=== PATIENT | female | born 1980 | race Caucasian/White ===

== ENCOUNTER 2019-01-04 08:23 | Day surgery (SDC) | payer BC, SELFPAY ==
[2018-12-26 08:20] VITALS: BMI 21.9
[2019-01-04] VITALS (8 sets, daily range): BP systolic 93–132; BP diastolic 60–80; PULSE 61–91; RESP 15–16; TEMP 36.4–37; O2SAT 94–100; BMI 21.9
--- NOTE | 2019-01-04 | PATH_ITS ---
[facility] Accession Number: [id number] . 01 Material submitted: . ENDOMETRIAL CURETTINGS . 02 Diagnosis: Endometrial Curettings: Portions of disordered proliferative endometrium with patchy regions of breakdown; negative for glandular hyperplasia, cytologic atypia, and malignancy. Occasional tissue fragments demonstrate prominent vessels, suggestive of polyp, if clinical and imaging findings are concordant. MRV/01/07/2019 . 02 Electronically signed: . Mayte Solomon MD, Pathologist NPI- [id number] . 01 Gross description: . ENDOMETRIAL CURETTINGS: Received in formalin are minute fragments of mucoid and hemorrhagic material measuring 2.0 x 1.0 x 0.5 cm in aggregate. Submitted in toto in 1 cassette. /[facility] /DM . 02 Pathologist provided ICD-10: N85.00 . 02 CPT . 431509 Performed at: [address] [facility] [address], [place], [place] [id number] MD Manjeet Hong MD Phone: [phone] Performed at: [address] [facility] [address] [place], [place] [id number] MD Josephine Isbell MD Phone: [phone]
[2019-01-04] MEDS: LACTATED RINGERS 1,000 ML 42 ML IV (08:55)
[2019-01-04] MEDS: APREPITANT 40 MG CAPSULE PO (09:48)
--- NOTE | 2019-01-04 10:08 | PM.PREOP ---
Pre-operative Note Interval Note History & Physical reviewed/Exam performed by Physician: Yes Changes to H&P: No
--- NOTE | 2019-01-04 10:18 | SUR.OPER ---
Lithotomy on padded OR bed, head on pillow, arms secured on padded arm boards at <90 degrees abduction. Legs secured in padded yellow fins stirrups.
--- NOTE | 2019-01-04 10:33 | PM.HP.1 ---
History of Present Illness Date Patient Seen: 01/04/19 Time Patient Seen: 10:00 Chief complaint: [id number] Narrative: Patient is a 38-year-old who presents for a D&C hysteroscopy secondary to menorrhagia, dysmenorrhea, and thickened endometrial lining Patient History Medical History (Updated 12/26/18 @ 08:25 by Heidi Kaufman RN) Endometrial polyp (Acute) History of endometrial biopsy (Acute ~2016) Polycystic ovaries (Acute) Family History (Updated 10/21/15 @ 00:00 by Janine Hester PA-C) Father Mitral valve prolapse Mother Personal history of malignant neoplasm of breast Social History household members: spouse and children Smoking Status: Never smoker alcohol intake: never Family & Social History Family History (Updated 10/21/15 @ 00:00 by Janine Hester PA-C) Father Mitral valve prolapse Mother Personal history of malignant neoplasm of breast Social History: household members spouse,children Tobacco & Substance use: Smoking Status Never smoker alcohol intake never Substance Use Type does not use Meds Home Medications Medication Instructions Recorded Confirmed Type ferrous sulfate [Feosol] 325 mg PO #0 tab 06/29/16 10/24/18 History Allergies Allergy/AdvReac Type Severity Reaction Status Date / Time iodine [IODINE] Allergy Severe VIOLENT Unverified 10/24/18 08:09 VOMITING AND ABDOMINAL CRAMPING shellfish derived Allergy Severe VIOLENT Unverified 10/24/18 08:09 [SHELLFISH DERIVED] VOMITING AND ABDOMINAL CRAMPING cephalexin [CEPHALEXIN] Allergy Intermediate CRAMPING Unverified 10/24/18 08:09 latex [LATEX] Allergy Intermediate ITCHING Unverified 10/24/18 08:09 AND SOMETIMES RASH metronidazole [From METROGEL] Allergy Intermediate VAGINAL Unverified 10/24/18 08:09 PAIN Penicillins [PENICILLINS] Allergy Intermediate CRAMPING Unverified 10/24/18 08:09 AND DIARRHEA prednisone [PREDNISONE] AdvReac Severe ANXIETY Unverified 10/24/18 08:09 spironolactone AdvReac Severe TACHYCARDIA Unverified 10/24/18 08:09 [SPIRONOLACTONE] Exam Vital Signs (past 8 hours): - 01/04/19 08:47 Temperature 98.6 F Pulse Rate 91 H Respiratory Rate 16 Blood Pressure 118/80 Pulse Oximetry 100 Oxygen Delivery Method Room Air Narrative Exam Narrative: HEENT: No thyromegaly, no anterior cervical or supraclavicular lymphadenopathy. Lungs:Clear to auscultation bilaterally, no wheezes. Cardiovascular: Regular rate and rhythm, no murmurs, rubs, or gallops. Abdomen: No scars. No hepatosplenomegaly. No masses palpable. External genitalia: Normal Vagina: Normal Cervix: Normal Bimanual exam: 8 Week size uterus. Mobile. Rectal: No masses. Assessment & Plan Assessment & Plan narrative: Assessment: 38-year-old with dysmenorrhea, menorrhagia, and thickened endometrial lining consistent with a polyp Plan: D&C hysteroscopy with possible polypectomy The risks, benefits, and alternatives to the procedure were explained to the patient. The risks including bleeding, infection, and uterine perforation. She understands these risks and agrees to proceed. A full PAR-Q was held and consent form was signed
--- NOTE | 2019-01-04 10:36 | PM.GYNOP.1 ---
Operative Date/Time/Diagnoses Date of procedure: 01/04/19 Time of procedure: 10:36 Pre-op diagnosis: Menorrhagia Dysmenorrhea Thickened endometrial lining consistent with a polyp Post-op diagnosis: same Procedure: Procedures Operation Date: 01/04/19 09:45 Actual Procedures Side Surgeon p HYSTEROSCOPY , D& C Not Applicable Elissa Turk MD Indications: Menorrhagia Dysmenorrhea Thickened endometrial lining consistent with a polyp Surgeon: Elissa Turk Anesthesia Type: General (LMA) Operative Notes Findings: 8 week size anteverted uterus Both fallopian tube ostia observed No polyp, but very thickened endometrial lining especially in the lower uterine segment Closure Type: not applicable Specimen(s): endometrial curettings Estimated blood loss (mL): 15 Blood products transfused: none Procedure in detail: After informed consent was obtained, the patient was taken to the operating room where she was placed in the dorsal supine position. After adequate LMA general anesthesia was achieved, she was placed in the dorsal lithotomy position, and prepped and draped in the usual sterile fashion. A time-out was performed. A bivalve speculum was placed into the vagina and the anterior lip of the cervix grasped with a single-tooth tenaculum. Cervical os was sequentially dilated to the # 9 Hegar dilator. The hysteroscope passed easily into the endometrial cavity. Both fallopian tube ostia were observed. There was no polyp but thickened endometrial lining especially in the lower uterine segment. The hysteroscope was removed from the uterus. Sharp curettage was performed yielding a large amount of endometrial curettings. The instruments were removed from the uterus. The single-tooth tenaculum was removed from the anterior lip of the cervix. The bivalve speculum was removed from the vagina. Sponge, lap, and instrument counts were correct x2. The patient tolerated the procedure well, and was taken to PACU in stable condition. Complications: none Post-operative Condition: stable Disposition: PACU Plan for aftercare: Home after recovery
[2019-01-04] MEDS: KETOROLAC 30 MG/ML VIAL IV (10:40)
[2019-01-04] MEDS: ONDANSETRON 4 MG/2 ML INJ IV (10:41)
[2019-01-04] MEDS: fentaNYL 100 MCG/2 ML INJ 50 MCG IV ×4 (10:48→11:05)
[2019-01-04] MEDS: OXYCODONE/ACETAMINOPHEN 5/325 TABLET 1 TAB PO (12:20)
== END 2019-01-04 12:26 | disposition home or self-care (01) ==
PROVIDERS: PCP Physician Assistant; Visit Provider Obstetrics & Gynecology
PROC: 0UDB8ZZ Extraction of Endometrium, Via Natural or Artificial Opening Endoscopic (ICD-10-PCS; CPT 58558; principal; 2019-01-04 09:45)
DX: N85.00 Endometrial hyperplasia, unspecified (principal); E28.2 Polycystic ovarian syndrome
CPT/HCPCS: 58558; J1885; J2250; J2405; J2704; J2765; J3010; J8501

== ENCOUNTER → 2019-06-11 09:35 | Outpatient (CLI) | payer BC, SELFPAY ==
[2019-06-11 10:35] LABS: Add Manual Diff / Slide Review NO; Basophils Absolute Auto 0 /uL (0-100); Basophils Percent Auto 0.3 % (0-2); Eosinophils Absolute Auto 0 /uL (0-450); Eosinophils Percent Auto 0.8 % (2-4); Hematocrit 39.7 % (36-46); Hemoglobin 13.5 g/dL (12.0-16.0); Lymphocytes Absolute Auto 1700 /uL (1100-4500); Lymphocytes Percent Auto 28.9 % (25-40); Mean Corpuscular HGB Conc 33.9 % (30-36); Mean Corpuscular Hemoglobin 31.2 PG (26-34); Mean Corpuscular Volume 91.9 fL (80-100); Monocytes Absolute Auto 400 /uL (0-900); Monocytes Percent Auto 6.7 % (3-14); Neutrophils Absolute Auto 3700 /uL (1500-7000); Neutrophils Percent Auto 63.3 % (50-75); Platelet Count 302 X10^3/uL (150-400); Red Blood Cell Count 4.32 X10^6/uL (4.0-5.2); Red Cell Distribution Width 12.6 % (11.6-14.8); White Blood Cell Count 5.8 X10^3/uL (4.5-11.0)
[2019-06-11 10:45] LABS: Alanine Aminotransferase 19 IU/L (9-52); Albumin 4.7 g/dL (3.5-5.0); Albumin Globulin Ratio 1.5 (1.0-2.8); Alkaline Phosphatase 56 U/L (38-126); Aspartate Aminotransferase 24 IU/L (14-36); BUN Creatinine Ratio 16.7 (6-22); Bilirubin Total 0.3 mg/dL (0.2-1.3); Blood Urea Nitrogen 15 mg/dL (7-17); Calcium 9.6 mg/dL (8.4-10.2); Carbon Dioxide 24 mmol/L (22-32); Chloride 106 mmol/L (98-107); Cholesterol 156 mg/dL (140-199); Estimated Glomerular Filt Rate > 60.0 mL/min (>60); Globulin 3.1 g/dL (1.7-4.1); Glucose 102 mg/dL (70-100); HDL Cholesterol 63 mg/dL (40-60); HEMOLYSIS < 15 (0-50); LDL Cholesterol Calculated 86 mg/dL (<100); Potassium 3.9 mmol/L (3.4-5.1); Sodium 139 mmol/L (137-145); Total Protein 7.8 g/dL (6.3-8.2); Triglycerides 36 mg/dL (35-150)
[2019-06-11 11:00] LABS: Free T3, Triiodothyronine Free 3.98 pg/mL (2.77-5.27); Free T4, Direct Thyroxine 0.82 ng/dL (0.78-2.19)
[2019-06-11 11:14] LABS: Thyroid Stimulating Hormone 1.86 uIU/mL (0.47-4.68)
[2019-06-11 11:18] LABS: Ferritin 16.9 ng/mL (6.27-137)
[2019-06-13 15:49] LABS: Thyroid Peroxidase Antibodies 2 IU/mL (< 9)
== END ==
PROVIDERS: PCP Physician Assistant; Visit Provider Naturopath
DX: Z00.00 Encounter for general adult medical examination without abnormal findings (principal)
CPT/HCPCS: 36415; 80053; 80061; 82728; 84439; 84443; 84481; 85025; 86376

== ENCOUNTER 2020-01-13 12:08 | Emergency (ER) | payer BC, SELFPAY ==
[2020-01-13 12:17] VITALS: BP 131/80; PULSE 98; RESP 12; TEMP 37; O2SAT 100
--- NOTE | 2020-01-13 12:20 | DI.RAD.S_ITS ---
PROCEDURE: XR CHEST 1V INDICATIONS: palpitations TECHNIQUE: One view of the chest was acquired. COMPARISON: [facility], , CHEST 2 VIEW, 10/04/2011, 10:12. FINDINGS: Surgical changes and devices: None. Lungs and pleura: Lungs are clear. No pleural effusions or pneumothorax. Mediastinum: Mediastinal contours appear normal. Heart size is normal. Bones and chest wall: No suspicious bony lesions. Overlying soft tissues appear unremarkable. IMPRESSION: Normal for age, source of current palpitation symptoms is not seen. Dictated by: Corey Ramon M.D. on 01/13/2020 at 12:40 Approved by: Corey Ramon M.D. on 01/13/2020 at 12:41
--- NOTE | 2020-01-13 12:32 | ED.ARRPALP ---
HPI - Arrhythmia/Palpitations General Chief Complaint: Arrhythmia/Palpitations Stated Complaint: heart palp Time Seen by Provider: 01/13/20 12:20 Source: patient and old records reviewed Mode of arrival: Ambulatory Limitations: no limitations History of Present Illness HPI narrative: This is a 39-year-old female comes to the emergency department with complaint of heart palpitations. Patient states she was at home lying in bed when she felt like her heart was racing from 64 up to the 150 range. She states she felt sort of sweaty and chilled when this happened. She states it happened multiple times. She states she has felt mildly lightheaded. She felt some tightness in her left chest with these episodes. They last for very short period of time. She does not feel short of breath or have any chest tightness at this time. She denies any nausea or vomiting. She denies any diarrhea, constipation or black or bloody stools. No urinary symptoms. No swelling in her extremities. She did recently stop the supplement that had form of stimulant and several other components about 3 days ago. She was taking this for 3 weeks. She denies any other medications. She has had a hysteroscopy and umbilical hernia repair. She denies tobacco, alcohol or illicit. She states her father has a history of mitral valve prolapse, mother has history of hypertension and cancer. She denies any embolic history. Related Data Home Medications Medication Instructions Recorded Confirmed ferrous sulfate [Feosol] 325 mg PO #0 tab 06/29/16 10/24/18 Allergies Allergy/AdvReac Type Severity Reaction Status Date / Time iodine [IODINE] Allergy Severe VIOLENT Unverified 10/24/18 08:09 VOMITING AND ABDOMINAL CRAMPING shellfish derived Allergy Severe VIOLENT Unverified 10/24/18 08:09 [SHELLFISH DERIVED] VOMITING AND ABDOMINAL CRAMPING cephalexin [CEPHALEXIN] Allergy Intermediate CRAMPING Unverified 10/24/18 08:09 latex [LATEX] Allergy Intermediate ITCHING Unverified 10/24/18 08:09 AND SOMETIMES RASH metronidazole [From METROGEL] Allergy Intermediate VAGINAL Unverified 10/24/18 08:09 PAIN Penicillins [PENICILLINS] Allergy Intermediate CRAMPING Unverified 10/24/18 08:09 AND DIARRHEA prednisone [PREDNISONE] AdvReac Severe ANXIETY Unverified 10/24/18 08:09 spironolactone AdvReac Severe TACHYCARDIA Unverified 10/24/18 08:09 [SPIRONOLACTONE] acetaminophen [From Percocet] AdvReac N/V, Verified 02/06/19 08:40 dizziness, and almost passing out oxycodone [From Percocet] AdvReac N/V, Verified 02/06/19 08:40 dizziness, and almost passing out Review of Systems Review of Systems ROS Unobtainable: All systems reviewed & are unremarkable except as noted in HPI and below Patient History Medical History Endometrial polyp (Acute) History of endometrial biopsy (Acute ~2016) Polycystic ovaries (Acute) Surgical History Status post D&C (Resolved 01/04/19) Family History Father Mitral valve prolapse Mother Personal history of malignant neoplasm of breast Social History household members: spouse and children Smoking Status: Never smoker alcohol intake: never Smoking Status: Never smoker alcohol intake frequency: holidays/special occasions only Substance Use Type: does not use Exam Narrative Exam Narrative: GENERAL: Alert and oriented x three,, well-appearing female in mild distress. HEENT: Head normocephalic, atraumatic, EOMI, pupils reactive, face symmetric, moist mucous membranes NECK: Supple, full range of motion CARDIOVASCULAR: Regular rate and rhythm without murmurs, rubs or gallops. No JVD. No swelling of bilateral lower extremities. RESPIRATORY: Breath sounds equal bilaterally, no wheezes rales or rhonchi. No tachypnea or accessory muscle use. ABDOMEN: Soft, nontender. Normoactive bowel sounds all 4 quadrants. No guarding or rebound, rigidity, no mass : No CVA tenderness EXTREMITIES: Normal range of motion, 2+ pulses bilateral lower extremities. Neurovascularly intact NEUROLOGICAL: Cranial nerves II through XII grossly intact. Moving all extremities SKIN: Warm, dry, no petechiae, no rashes or lesions. Initial Vital Signs Initial Vital Signs: Vital Signs Temperature 98.6 F 01/13/20 12:17 Pulse Rate 98 H 04/06/20 12:17 Respiratory Rate 12 01/13/20 12:17 Blood Pressure 131/80 01/13/20 12:17 Pulse Oximetry 100 01/13/20 12:17 Scores PERC Score Age greater than or equal to 50 years: No Heart rate greater than or equal to 100 bpm: No Room Air O2 Sat less than 95%: No Unilateral leg swelling: No Recent trauma or surgery: No Hemoptysis: No Prior PE or DVT: No Hormone Use: No Total PERC Score: 0 Course Orders Ordered: ED Orders 01/13/20 12:20 XR chest 1V Stat 01/13/20 12:40 Basic Metabolic Panel Stat Complete Blood Count AUTO DIFF Stat Magnesium Stat Partial Thromboplastin Time Stat Prothrombin Time INR Stat Thyroid Stimulating Hormone Stat Troponin & CK Cardiac Panel Stat 01/13/20 14:10 Urine Drug Screen, Rapid Stat Discontinued Medications Sodium Chloride (Normal Saline 0.9%) 1,000 mls @ 1,000 mls/hr IV BOLUS ONE Stop: 01/13/20 13:45 Last Infusion: 01/13/20 15:41 Dose: 0 mls/hr Documented by: Admin: 01/13/20 14:58 Dose: 1,000 mls/hr Documented by: BTONER Vital Signs Vital signs: Vital Signs - 8 hr 01/13/20 12:17 01/13/20 13:33 01/13/20 14:20 Temperature 98.6 F Pulse Rate 98 H 68 70 Respiratory Rate 12 17 14 Blood Pressure 131/80 Blood Pressure [Right Arm] 103/58 L 120/66 Pulse Oximetry 100 100 100 01/13/20 15:42 Temperature Pulse Rate 78 Respiratory Rate 17 Blood Pressure 106/65 Blood Pressure [Right Arm] Pulse Oximetry 100 MDM - Arrhythmia/Palpitations Lab Data Attestation: I reviewed the patient's lab results. Result diagrams: 01/13/20 12:40 01/13/20 12:40 Labs: Lab Results 01/13/20 01/13/20 01/13/20 Range/Units 12:40 12:40 12:40 WBC 7.2 (4.5-11.0) X10^3/uL RBC 4.27 (4.0-5.2) X10^6/uL Hgb 13.6 (12.0-16.0) g/dL Hct 40.3 (36-46) % MCV 94.4 (80-100) fL MCH 32.0 (26-34) PG MCHC 33.9 (30-36) % RDW 13.5 (11.6-14.8) % Plt Count 296 (150-400) X10^3/uL Neut % (Auto) 81.7 H (50-75) % Lymph % (Auto) 13.3 L (25-40) % [place] % (Auto) 4.6 (3-14) % Eos % (Auto) 0.2 L (2-4) % Baso % (Auto) 0.2 (0-2) % Neut # (Auto) 5900 (2633-7678) /uL Lymph # (Auto) 1000 L (8639-6637) /uL [place] # (Auto) 300 (0-900) /uL Eos # (Auto) 0 (0-450) /uL Baso # (Auto) 0 (0-100) /uL PT 12.5 (10.1-12.7) SECONDS INR 1.1 (0.9-1.3) APTT 31 (26.4-36.2) SECONDS Sodium 142 (137-145) mmol/L Potassium 4.0 (3.4-5.1) mmol/L Chloride 110 H (98-107) mmol/L Carbon Dioxide 22 (22-32) mmol/L BUN 11 (7-17) mg/dL Creatinine 0.87 (0.52-1.04) mg/dL Estimated GFR > 60.0 (>60) mL/min BUN/Creatinine Ratio 12.6 (6-22) Glucose 103 H (70-100) mg/dL Calcium 9.7 (8.4-10.2) mg/dL Magnesium 2.0 (1.6-2.3) mg/dL Total Creatine Kinase 66 (30-135) U/L CK-MB (CK-2) TNP CK-MB (CK-2) Rel Index TNP Troponin I < 0.012 (0.01-0.034) ng/mL TSH (0.47-4.68) uIU/mL U Opiates 300ng/mL cut (Negative) Ur Oxycodone Screen (Negative) Urine Methadone Screen (Negative) Ur Barbiturates Screen (Negative) U Tricyclic Antidepress (Negative) Ur Phencyclidine Scrn (Negative) Ur Amphetamines Screen (Negative) U Methamphetamines Scrn (Negative) Ur MDMA Scrn (Ecstasy) (Negative) U Benzodiazepines Scrn (Negative) Urine Cocaine Screen (Negative) U Marijuana (THC) Screen (Negative) 01/13/20 01/13/20 Range/Units 12:40 14:10 WBC (4.5-11.0) X10^3/uL RBC (4.0-5.2) X10^6/uL Hgb (12.0-16.0) g/dL Hct (36-46) % MCV (80-100) fL MCH (26-34) PG MCHC (30-36) % RDW (11.6-14.8) % Plt Count (150-400) X10^3/uL Neut % (Auto) (50-75) % Lymph % (Auto) (25-40) % [place] % (Auto) (3-14) % Eos % (Auto) (2-4) % Baso % (Auto) (0-2) % Neut # (Auto) (1073-8122) /uL Lymph # (Auto) (3590-6557) /uL [place] # (Auto) (0-900) /uL Eos # (Auto) (0-450) /uL Baso # (Auto) (0-100) /uL PT (10.1-12.7) SECONDS INR (0.9-1.3) APTT (26.4-36.2) SECONDS Sodium (137-145) mmol/L Potassium (3.4-5.1) mmol/L Chloride (98-107) mmol/L Carbon Dioxide (22-32) mmol/L BUN (7-17) mg/dL Creatinine (0.52-1.04) mg/dL Estimated GFR (>60) mL/min BUN/Creatinine Ratio (6-22) Glucose (70-100) mg/dL Calcium (8.4-10.2) mg/dL Magnesium (1.6-2.3) mg/dL Total Creatine Kinase (30-135) U/L CK-MB (CK-2) CK-MB (CK-2) Rel Index Troponin I (0.01-0.034) ng/mL TSH 1.19 (0.47-4.68) uIU/mL U Opiates 300ng/mL cut Negative (Negative) Ur Oxycodone Screen Negative (Negative) Urine Methadone Screen Negative (Negative) Ur Barbiturates Screen Negative (Negative) U Tricyclic Antidepress Negative (Negative) Ur Phencyclidine Scrn Negative (Negative) Ur Amphetamines Screen Negative (Negative) U Methamphetamines Scrn Negative (Negative) Ur MDMA Scrn (Ecstasy) Negative (Negative) U Benzodiazepines Scrn Negative (Negative) Urine Cocaine Screen Negative (Negative) U Marijuana (THC) Screen Negative (Negative) Point of Care Testing Test Results Negative Urine Dip Bedside Urine Glucose Negative Bedside Urine Bilirubin - Negative Bedside Urine Ketone - Negative Urine Specific [place] 1.015 Bedside Urine Occult Blood - Negative Bedside Urine pH 7.0 Bedside Urine Urobilinogen - Negative Bedside Urine Nitrite - Negative Bedside Urine Leukocytes - Negative Esterase Imaging Data Chest x-ray: Radiologist's Impresson: 6 Helene Dennison DO Find Patient Imaging - Debbie Noriega 39 F 1980 ACTIVITY DATE EXAM STATUS AUTHOR 01/13/20 12:20 Signed [place],[address] [address] XRay Report Signed Patient: Debbie Noriega MMR#: [id number] : 1980Acct:[id number] Age/Sex: 39 / FDate of Service: 01/13/20 Loc: ED Accession Number: [id number] Procedure: XR chest 1V Ordering Provider: Helene Dennison D.O. PROCEDURE: XR CHEST 1V INDICATIONS: palpitations TECHNIQUE: One view of the chest was acquired. COMPARISON: [facility], CHEST 2 VIEW, 10/04/2011, 10:12. FINDINGS: Surgical changes and devices: None. Lungs and pleura: Lungs are clear. No pleural effusions or pneumothorax. Mediastinum: Mediastinal contours appear normal. Heart size is normal. Bones and chest wall: No suspicious bony lesions. Overlying soft tissues appear unremarkable. IMPRESSION: Normal for age, source of current palpitation symptoms is not seen. Dictated by: Corey Ramon M.D. on 01/13/2020 at 12:40 Approved by: Corey Ramon M.D. on 01/13/2020 at 12:41 ECG Data Attestation: I personally reviewed and interpreted this ECG as follows: Prior ECG tracings: not available for review Interpretation: Sinus rhythm rate 86 DE 128 QRS 82 and QTC of 433. Patient has depression in V4 5 and 6. No elevation noted. Patient does not have any priors for comparison. [facility] Narrative Medical decision making narrative: Patient labs do not show major abnormalities, chest x-ray is negative, EKG shows some ST depression V4, 5 and 6 but no other acute changes with do priors for comparison. Patient has not had any additional episodes in the department that are captured on telemetry. Patient states that her heart rate changes were noted on her Fitbit. She did not check her pulse when this was happening. Return precautions were given. She states that she felt she had an episode while she was here her heart rate changed by 20 points but was still within normal range from 70-90 range. Discharge Plan Departure Patient Disposition: Home Clinical Impression: Palpitations Discharge Date/Time: 01/13/20 15:44 Instructions: DI for Palpitations Activity Restrictions/Additional Instructions: Follow up with your physician, call to discuss your symptoms. If you continue to have them they may try to set up a holter monitor or ziopatch. Your labs and imaging did not show any acute changes today. I would not continue your recent supplement, this may have contributed to your symptoms. Return for passing out, recurrent prolonged symptoms, new chest pain or shortness of breath, persistent vomiting, swelling of your extremities or other new or concerning symptoms. Prescriptions: No Action ferrous sulfate [Feosol] 325 MG tablet 325 mg PO Qty: 0 RF: 0 Referrals: Janine Hester PA-C [Primary Care Provider] -
--- NOTE | 2020-01-13 12:57 | PC.NURSE ---
pt states she has been taking a multi supplement including advantra z for 3 weeks, pt stopped it 3 days ago when her heart felt fast.
[2020-01-13 13:05] LABS: Add Manual Diff / Slide Review NO; Basophils Absolute Auto 0 /uL (0-100); Basophils Percent Auto 0.2 % (0-2); Eosinophils Absolute Auto 0 /uL (0-450); Eosinophils Percent Auto 0.2 % (2-4); Hematocrit 40.3 % (36-46); Hemoglobin 13.6 g/dL (12.0-16.0); INR 1.1 (0.9-1.3); Lymphocytes Absolute Auto 1000 /uL (1100-4500); Lymphocytes Percent Auto 13.3 % (25-40); Mean Corpuscular HGB Conc 33.9 % (30-36); Mean Corpuscular Volume 94.4 fL (80-100); Monocytes Absolute Auto 300 /uL (0-900); Monocytes Percent Auto 4.6 % (3-14); Neutrophils Absolute Auto 5900 /uL (1500-7000); Neutrophils Percent Auto 81.7 % (50-75); Platelet Count 296 X10^3/uL (150-400); Prothrombin Time 12.5 SECONDS (10.1-12.7); Red Blood Cell Count 4.27 X10^6/uL (4.0-5.2); Red Cell Distribution Width 13.5 % (11.6-14.8); White Blood Cell Count 7.2 X10^3/uL (4.5-11.0)
[2020-01-13 13:07] LABS: PTT Partial Thromboplastin Tim 31 SECONDS (26.4-36.2)
[2020-01-13 13:10] LABS: BUN Creatinine Ratio 12.6 (6-22); Blood Urea Nitrogen 11 mg/dL (7-17); Calcium 9.7 mg/dL (8.4-10.2); Carbon Dioxide 22 mmol/L (22-32); Chloride 110 mmol/L (98-107); Creatine Kinase 66 U/L (30-135); Estimated Glomerular Filt Rate > 60.0 mL/min (>60); Glucose 103 mg/dL (70-100); HEMOLYSIS < 15 (0-50); Sodium 142 mmol/L (137-145)
[2020-01-13 13:23] LABS: Troponin I < 0.012 ng/mL (0.01-0.034)
[2020-01-13 13:33] VITALS: BP 103/58; PULSE 68; RESP 17; O2SAT 100
[2020-01-13 13:41] LABS: Thyroid Stimulating Hormone 1.19 uIU/mL (0.47-4.68)
[2020-01-13 14:20] VITALS: BP 120/66; PULSE 70; RESP 14; O2SAT 100
[2020-01-13 14:41] LABS: UR Morphine/Opiate cutoff 300 Negative (Negative); Ur Creatinine Normal (Normal); Ur Specific Gravity Normal (Normal); Urine Amphetamines Negative (Negative); Urine Barbiturates Negative (Negative); Urine Benzodiazepines Negative (Negative); Urine Cocaine Negative (Negative); Urine MDMA Negative (Negative); Urine Methadone Negative (Negative); Urine Methamphetamines Negative (Negative); Urine Oxycodone Negative (Negative); Urine Phencyclidine Negative (Negative); Urine Tetrahydrocannabinol Negative (Negative); Urine Tricyclic Antidepressant Negative (Negative); Urine pH Normal (Normal)
[2020-01-13] MEDS: SODIUM CHLORIDE 0.9% 1,000 ML 1000 ML IV (14:58)
[2020-01-13 15:42] VITALS: BP 106/65; PULSE 78; RESP 17; O2SAT 100
== END 2020-01-13 15:44 | disposition home or self-care (01) ==
PROVIDERS: Emergency Provider Emergency Medicine; PCP Physician Assistant
DX: R00.2 Palpitations (principal)
CPT/HCPCS: 36415; 71045; 80048; 80305; 81003; 81025; 82550; 83735; 84443; 84484; 85025; 85610; 85730; 93005; 96360; 99284

== ENCOUNTER → 2020-06-03 12:45 | Outpatient (ROUT) | payer BC, SELFPAY ==
[2020-06-03 12:49] LABS: Bacteria Urine None Seen; WBC Urine None Seen (0-5/HPF)
[2020-06-03 12:53] LABS: Appearance Urine UA CLEAR; Bilirubin Urine UA NEGATIVE (NEGATIVE); Color Urine UA YELLOW; Glucose Urine UA NEGATIVE (Negative); Ketones Urine UA NEGATIVE (NEGATIVE); Leukocyte Esterase Urine UA NEGATIVE (NEGATIVE); Nitrite Urine UA NEGATIVE (Negative); Occult Blood Urine UA TRACE-INTACT (Negative); Protein Urine UA NEGATIVE (Negative); Urobilinogen Urine UA 0.2 E.U./dL (0.2)
[2020-06-03 13:02] LABS: Culture Indicated Urine Cult Not Indicated; RBC Urine 1-5/HPF (0-5/HPF)
== END ==
PROVIDERS: PCP Physician Assistant; Visit Provider Naturopath
DX: N39.0 Urinary tract infection, site not specified (principal)
CPT/HCPCS: 81001

== ENCOUNTER 2020-06-04 06:16 | Emergency (ER) | payer BC, SELFPAY ==
[2020-06-04 06:28] VITALS: BP 118/67; PULSE 90; RESP 15; TEMP 36.8; O2SAT 100; BMI 21.6
[2020-06-04 06:53] VITALS: PULSE 80; O2SAT 98
[2020-06-04 07:00] VITALS: BP 119/69; PULSE 86; O2SAT 100
--- NOTE | 2020-06-04 07:03 | ED_ITS ---
HPI - Female Genitourinary General Chief complaint: Urogenital-Female Stated complaint: feels awful thinks poss uti Time Seen by Provider: 06/04/20 06:42 Source: patient Mode of arrival: Ambulatory Limitations: no limitations History of Present Illness HPI Narrative: Patient is a 39-year-old female who presents with pelvic pain ongoing for the last 3 weeks. She thought she had a UTI painful frequent urination she took cranberry juice and has had abdominal cramping. She says it has not helped. She is had a foul smelling odor. She has a monogamous relationship with her . She denies any pruritus. Shes Had nightly urinary urgency and frequency. She has had ongoing vaginal discomfort for the past few weeks. She denies any fever chills nausea or vomiting Related Data Home Medications Medication Instructions Recorded Confirmed ferrous sulfate [Feosol] 325 mg PO #0 tab 06/29/16 04/18/20 Previous Rx's Medication Instructions Recorded metronidazole [Flagyl] 500 mg PO BID #14 tab 06/04/20 ondansetron 4 mg PO Q8H PRN #10 tab 06/04/20 Allergies Allergy/AdvReac Type Severity Reaction Status Date / Time iodine [IODINE] Allergy Severe VIOLENT Verified 04/18/20 09:20 VOMITING AND ABDOMINAL CRAMPING shellfish derived Allergy Severe VIOLENT Verified 04/18/20 09:20 [SHELLFISH DERIVED] VOMITING AND ABDOMINAL CRAMPING cephalexin [CEPHALEXIN] Allergy Intermediate CRAMPING Verified 04/18/20 09:20 latex [LATEX] Allergy Intermediate ITCHING Verified 04/18/20 09:20 AND SOMETIMES RASH metronidazole [From METROGEL] Allergy Intermediate VAGINAL Verified 04/18/20 09:20 PAIN Penicillins [PENICILLINS] Allergy Intermediate CRAMPING Verified 04/18/20 09:20 AND DIARRHEA prednisone [PREDNISONE] AdvReac Severe ANXIETY Verified 04/18/20 09:20 spironolactone AdvReac Severe TACHYCARDIA Verified 04/18/20 09:20 [SPIRONOLACTONE] acetaminophen [From Percocet] AdvReac N/V, Verified 04/18/20 09:20 dizziness, and almost passing out oxycodone [From Percocet] AdvReac N/V, Verified 04/18/20 09:20 dizziness, and almost passing out Review of Systems Review of Systems ROS Unobtainable: All systems reviewed & are unremarkable except as noted in HPI and below Constitutional Constitutional: Denies chills, Denies fever(s), Denies lethargy and Denies weakness Cardiovascular Cardiovascular: Denies chest pain, Denies irregular heart rhythm, Denies lightheadedness, Denies palpitations, Denies dyspnea, Denies dyspnea on exertion and Denies orthopnea Respiratory Respiratory: Denies cough, Denies dyspnea, Denies dyspnea on exertion and Denies wheezing Gastrointestinal Gastrointestinal: Reports abdominal pain (Lower abdominal cramping), Reports cramping and Denies nausea Genitourinary Genitourinary: Reports as per HPI, Reports urinary hesitancy and Reports urinary urgency Genitourinary: Reports as per HPI, Reports urinary hesitancy, Reports urinary urgency, Reports vaginal discharge and Reports vaginal odor Musculoskeletal Musculoskeletal: Denies back pain and Denies myalgias Integumentary/Breasts Skin/Breast: Denies pruritus, Denies erythema, Denies rash and Denies wounds Neurologic Neurologic: Denies weakness Endocrine Endocrine: Denies palpitations Allergic/Immunologic Allergic/Immunologic: Denies wheezing Patient History Medical History Endometrial polyp (Acute) History of endometrial biopsy (Acute ~2016) Polycystic ovaries (Acute) Surgical History Status post D&C (Resolved 01/04/19) Family History Father Mitral valve prolapse Mother Personal history of malignant neoplasm of breast alcohol intake frequency: holidays/special occasions only Substance Use Type: does not use Exam Initial Vital Signs Initial Vital Signs: Vital Signs Temperature 98.3 F 06/04/20 06:28 Pulse Rate 90 06/04/20 06:28 Respiratory Rate 15 06/04/20 06:28 Blood Pressure 118/67 06/04/20 06:28 Pulse Oximetry 100 06/04/20 06:28 GENERAL: Well-appearing, well-nourished and in no acute distress. HEENT: Head atraumatic,EOMI, pupils reactive, face symmetric, moist mucous membranes CARDIOVASCULAR: Regular rate and rhythm without murmurs, rubs or gallops. RESPIRATORY: Breath sounds equal bilaterally, no wheezes rales or rhonchi. ABDOMEN: Soft, nontender. Normoactive bowel sounds all 4 quadrants. No guarding or rebound. PELVIC: External genitalia is normal, no vaginal bleeding, yellowish white vaginal discharge, foul odor, cervical os is closed, no adnexal tenderness : No CVA tenderness EXTREMITIES: Normal range of motion, no clubbing or edema. Neurovascularly intact NEUROLOGICAL: Alert and oriented x4 SKIN: Warm, dry, no laceration, no petechiae, no rashes or lesions. Course Orders Ordered: ED Orders 06/04/20 07:03 Chlamydia/Gonoc/Myco Genital Stat Genital Culture Stat Wet Prep Tric BV Ngoc Stat 06/04/20 07:08 US pelvic complete Stat Discontinued Medications Ibuprofen (Advil) 800 mg PO NOW ONE Stop: 06/04/20 07:09 Last Admin: 06/04/20 07:13 Dose: 800 mg Documented by: SCANHALIE Ondansetron HCl (Zofran Odt) 4 mg SL NOW ONE Stop: 06/04/20 07:09 Last Admin: 06/04/20 07:13 Dose: 4 mg Documented by: SCANHALIE Vital Signs Vital signs: Vital Signs - 8 hr 06/04/20 06:28 06/04/20 06:53 06/04/20 07:00 Temperature 98.3 F Pulse Rate 90 80 86 Respiratory Rate 15 Blood Pressure 118/67 119/69 Pulse Oximetry 100 98 100 06/04/20 07:30 Temperature Pulse Rate 80 Respiratory Rate Blood Pressure 115/73 Pulse Oximetry 100 MDM - Female Genitourinary Lab Data Attestation: I reviewed the patient's lab results. 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 Additional endovaginal scanning was necessary due to incomplete visualization of the adnexal and endometrial structures by transabdominal scanning. [facility], , [facility] PELVIC COMPLETE, 10/24/2018, 8:30. [facility], , PELVIC COMPLETE, 06/29/2016, 8:29. FINDINGS: Transabdominal scanning: Limited scanning through the kidneys shows no hydronephrosis. No pathologic free abdominal or pelvic fluid. Endovaginal scanning: Uterus: Uterus is normal in size at 5.3 x 6.2 x 9.1 cm. The endometrium measures 16.1 mm in combined thickness. Ovaries: 3.1 x 2.4 x 1.7 cm on the right, 2.5 x 2.2 x 2.3 cm on the left. IMPRESSION: Source of pain is not identified. Normal appearing uterus and endometrial lining. Dictated by: Corey Ramon M.D. on 06/04/2020 at 8:35 Approved by: Corey Ramon M.D. on 06/04/2020 at 8:37 MDM Narrative Medical decision making narrative: Wet mount is negative for clue cells but has white cells. However odor does smell fishy and bacteria vaginosis like, this does not appear to be yeast infection. Discussed with her will treat her with Flagyl in see if her symptoms improve. She has no sign of UTI either. She does not appear to be septic. Her pain and nausea have improved with ibuprofen and Zofran. At this time no need for any further blood work or imaging. Recommend outpatient follow-up and return if symptoms are getting worse. Discharge Plan Departure Patient Disposition: Home Clinical Impression: Bacterial vaginosis Discharge Date/Time: 06/04/20 08:49 Instructions: DI for Bacterial Vaginosis Activity Restrictions/Additional Instructions: *You have been diagnosed with bacteria vaginosis *What to do: Your culture does not show this as a definitive diagnosis however based on exam and symptoms I think we should try treating you for this to see if you have improved *Continue to take medications as directed-->SENT TO [facility] Flagyl 500 mg twice a day for 7 days-do not drink alcohol with this it will make you vomit Zofran 4 mg every 8 hours if needed for nausea or vomiting *Follow up with your primary care provider in 2-3 days *Return to ER if you should have increasing abdominal pain, fever or any new, worsening or concerning symptoms Prescriptions: New ondansetron 4 mg tablet,disintegrating 4 mg PO Q8H PRN (Reason: nausea and vomiting) Qty: 10 RF: 0 metronidazole [Flagyl] 500 mg tablet 500 mg PO BID Qty: 14 RF: 0 No Action ferrous sulfate [Feosol] 325 MG tablet 325 mg PO Qty: 0 RF: 0 Referrals: Janine Hester PA-C [Primary Care Provider] -
--- NOTE | 2020-06-04 07:08 | DI.US.S_ITS ---
PROCEDURE: US PELVIC COMPLETE INDICATIONS: pain for weeks TECHNIQUE: Real-time scanning was performed of the pelvic organs, with image documentation. Additional endovaginal scanning was necessary due to incomplete visualization of the adnexal and endometrial structures by transabdominal scanning. COMPARISON: [facility], US, US PELVIC COMPLETE, 10/24/2018, 8:30. [facility], , PELVIC COMPLETE, 06/29/2016, 8:29. FINDINGS: Transabdominal scanning: Limited scanning through the kidneys shows no hydronephrosis. No pathologic free abdominal or pelvic fluid. Endovaginal scanning: Uterus: Uterus is normal in size at 5.3 x 6.2 x 9.1 cm. The endometrium measures 16.1 mm in combined thickness. Ovaries: 3.1 x 2.4 x 1.7 cm on the right, 2.5 x 2.2 x 2.3 cm on the left. IMPRESSION: Source of pain is not identified. Normal appearing uterus and endometrial lining. Dictated by: Corey Ramon M.D. on 06/04/2020 at 8:35 Approved by: Corey Ramon M.D. on 06/04/2020 at 8:37
[2020-06-04] MEDS: ONDANSETRON 4 MG ODT SL (07:13)
[2020-06-04] MEDS: IBUPROFEN 400 MG TABLET 800 MG PO (07:13)
[2020-06-04 07:30] VITALS: BP 115/73; PULSE 80; O2SAT 100
[2020-06-09 18:36] LABS: Chlamydia trachomatis Negative (Negative); Mycoplasma genitalium Negative (Negative); Neisseria gonorrhoeae Negative (Negative)
== END 2020-06-04 08:49 | disposition home or self-care (01) ==
PROVIDERS: Emergency Provider Emergency Medicine; PCP Physician Assistant
DX: N76.0 Acute vaginitis (principal); R39.15 Urgency of urination; Z11.3 Encounter for screening for infections with a predominantly sexual mode of transmission
CPT/HCPCS: 76830; 76856; 81003; 81025; 87070; 87205; 87210; 87491; 87591; 99283; 99284

== ENCOUNTER → 2020-07-03 11:43 | Outpatient (CLI) | payer BC, SELFPAY ==
[2020-07-04 15:31] LABS: Candida species Negative (Negative); Gardnerella vaginalis Negative (Negative); Trichomoas vaginalis Negative (Negative)
== END ==
PROVIDERS: PCP Physician Assistant; Visit Provider Obstetrics & Gynecology
DX: N89.8 Other specified noninflammatory disorders of vagina (principal); N94.9 Unspecified condition associated with female genital organs and menstrual cycle
CPT/HCPCS: 87480; 87510; 87660

== ENCOUNTER → 2020-09-17 08:35 | Outpatient (CLI) | payer BC, SELFPAY ==
--- NOTE | 2020-09-17 | DI.US.S_ITS ---
LIMITED ULTRASOUND OF LEFT BREAST AND AXILLA: 09/17/2020 CLINICAL: Diffuse left breast pain. Comparison is made to exams dated: 09/17/2020 mammogram and 09/29/2011 mammogram - [facility]. Color flow and real-time ultrasound of the left breast 1-3 o'clock, and axilla regions were performed. Jonas scale images of the real-time examination were reviewed. There is a benign 5 cm x 3.6 cm x 1.1 cm wider than tall oval mass in the left breast at 8 o'clock middle depth. This oval mass is hypoechoic. This correlates with stable mammography findings. No significant abnormalities were seen sonographically in the left axilla. IMPRESSION: BENIGN There is no sonographic evidence of malignancy. The 5 cm x 3.6 cm x 1.1 cm wider than tall oval mass in the left breast is consistent with a fibroadenoma and is benign as it has been stable mammographically since 2010. There is no abnormality seen in the left breast to correspond with the area of clinical concern and pain in the upper outer quadrant, however, recommend clinical follow up for persistent or worsening symptoms, or development of any clinically suspicious findings. A 1 year screening mammogram is recommended. Findings and recommendations were conveyed to the patient during today's evaluation. This exam was interpreted at Station ID: [id number]. Electronically Signed By: Dylan King M.D. aty/:09/17/2020 12:45:28 letter sent: Clinical Evaluation Ultrasound BI-RADS: 2 Benign
--- NOTE | 2020-09-17 | DI.MG.S_ITS ---
BILATERAL DIGITAL DIAGNOSTIC MAMMOGRAM 3D/2D: 09/17/2020 CLINICAL: Baseline exam. Mastodynia. Comparison is made to exam dated: 09/29/2011 [facility]. The tissue of both breasts is extremely dense, which lowers the sensitivity of mammography. There is a stable 4.5 cm x 5 cm oval equal density mass with an obscured margin in the left breast at 9 o'clock middle depth. No other significant masses, calcifications, or other findings are seen in either breast. IMPRESSION: INCOMPLETE: NEEDS ADDITIONAL IMAGING EVALUATION The stable 4.5 cm x 5 cm oval equal density mass in the left breast resembles a cyst or a fibroadenoma and is indeterminate. There is no abnormality seen in the right breast to correspond with the area of clinical concern, reported nipple abnormality, and pain, however, an ultrasound is recommended for further evaluation and is scheduled to immediately follow this examination. This exam was interpreted at Station ID: [id number]. NOTE: For mammograms, a report in lay terms will be sent to the patient. Approximately 15% of breast malignancies will not be visualized mammographically. In the management of a palpable breast mass, a negative mammogram must not discourage biopsy of a clinically suspicious lesion. Electronically Signed By: Dylan King M.D. aty/:09/17/2020 12:41:15 ACR BI-RADS Category 0: Incomplete [id number]
--- NOTE | 2020-09-17 | DI.US.S_ITS ---
LIMITED ULTRASOUND OF RIGHT BREAST AND AXILLA: 09/17/2020 CLINICAL: Inverted right nipple. No prior exams were available for comparison. Real-time ultrasound of the right breast retroareolar and axilla regions was performed. Jonas scale images of the real-time examination were reviewed. No significant abnormalities were seen sonographically in the right breast. IMPRESSION: NEGATIVE There is no sonographic evidence of malignancy. There is no abnormality seen in the right breast to correspond with the area of clinical concern, reported nipple abnormality, and pain, however, recommend clinical follow up for persistent or worsening symptoms, or development of any clinically suspicious findings. A 1 year screening mammogram is recommended. Findings and recommendations were conveyed to the patient during today's evaluation. This exam was interpreted at Station ID: [id number]. Electronically Signed By: Dylan King M.D. at/:09/17/2020 12:42:28 letter sent: Clinical Evaluation Ultrasound BI-RADS: 1 Negative
== END ==
PROVIDERS: PCP Physician Assistant; Referring Provider Physician Assistant; Visit Provider Physician Assistant
DX: R92.8 Other abnormal and inconclusive findings on diagnostic imaging of breast (principal); N64.4 Mastodynia; N63.25 Unspecified lump in the left breast, overlapping quadrants
CPT/HCPCS: 76642; 77066; G0279

== ENCOUNTER → 2022-11-11 08:19 | Outpatient (CLI) | payer BC, SELFPAY ==
--- NOTE | 2022-11-11 | DI.MG.S_ITS ---
BILATERAL DIGITAL SCREENING MAMMOGRAM 3D/2D WITH CAD: 11/11/2022 CLINICAL: Routine screening. Family history of breast cancer. Comparison is made to exams dated: 09/17/2020 mammogram and 09/29/2011 mammogram - [facility]. Both breasts are extremely dense, which lowers the sensitivity of mammography (category d />75% glandular tissue). Current study was also evaluated with a Computer Aided Detection (CAD) system. No significant masses, calcifications, or other findings are seen in either breast. There has been no significant interval change. IMPRESSION: NEGATIVE There is no mammographic evidence of malignancy. A 1 year screening mammogram is recommended. Based on Tyrer-Cuzick model (a risk assessment model), the patient's lifetime risk is 29.9% and her 10 year risk is 4.5%. If a patient has an elevated risk, a more comprehensive evaluation should be considered and/or a referral to a genetic counselor. The [place] [employer], [place] [employer], and NCCN Guidelines advise the consideration of Breast MRI as an adjunct to screening mammography in patients whose Lifetime risk to develop breast cancer is 20% or higher. This exam was interpreted at Station ID: [id number]. NOTE: For mammograms, a report in lay terms will be sent to the patient. Approximately 15% of breast malignancies will not be visualized mammographically. In the management of a palpable breast mass, a negative mammogram must not discourage biopsy of a clinically suspicious lesion. Electronically Signed By: Charity salazar/robert:11/11/2022 13:52:31 letter sent: Normal Exam ACR BI-RADS Category 1: Negative [id number]
== END ==
PROVIDERS: PCP Physician Assistant; Referring Provider Nurse Practitioner Family; Visit Provider Physician Assistant
DX: Z12.31 Encounter for screening mammogram for malignant neoplasm of breast (principal); Z80.3 Family history of malignant neoplasm of breast
CPT/HCPCS: 77063; 77067